=== PATIENT | male | born 1995 | race Hispanic/Latino ===

== ENCOUNTER 2022-10-25 22:41 | Emergency (ER) | payer OTHER, SELFPAY ==
[~2022-10-25 22:41] MED LIST: Iopamidol 370 76% 100 ML VIAL ONE
[2022-10-25] MEDS ORDERED: Morphine 4 MG/ML VIAL ONE (23:05)
[2022-10-25] MEDS ORDERED: Sodium Chloride 0.9% 1,000 ML ONE (23:05)
[2022-10-25 23:07] LABS: #Basophils 0.1 thou/uL (0.0-0.2); #Lymphocytes 1.6 thou/uL (1.20-3.40); #Monocytes 0.8 thou/uL (0.11-0.59); #Neutrophils 11.9 thou/uL (1.40-6.50); %Basophils 0.6 % (0.0-1.0); %Eosinophils 0.3 % (0.0-10.0); %Lymphocytes 10.8 % (21.0-51.0); %Monocytes 5.8 % (0.0-10.0); %Neutrophils 82.6 % (42.0-75.0); Hematocrit 48.9 % (42.0-52.0); Hemoglobin 16.6 g/dL (14.0-18.0); Mean Corpuscular HGB CONC 33.8 g/dL (32.0-36.0); Mean Corpuscular Volume 88.7 fl (78.0-98.0); Mean Platelet Volume 10.6 fL (7.4-10.4); Platelet Count 216 10x3/uL (130-400); RBC Distribution Width 11.6 % (11.5-14.5); Red Blood Cell (RBC) Count 5.51 mill/uL (4.70-6.10); White Blood Cell (WBC) Count 14.4 10x3/uL (4.8-10.8)
[2022-10-25] MEDS ORDERED: Ondansetron PF 4 MG/2 ML Vial ONE (23:11)
[2022-10-25 23:27] LABS: ALT (SGPT) 93 U/L (8-55); AST (SGOT) 37 U/L (5-34); Albumin 4.9 g/dL (3.5-5.0); Alkaline Phosphatase 83 U/L (40-110); Anion Gap 18 mmol/L (10-20); BUN (Urea Nitrogen) 9 mg/dL (8.9-20.6); Calc. Creatinine Clearance 0 mL/min (70-130); Calcium 10.8 mg/dL (7.8-10.44); Carbon Dioxide 25 mmol/L (22-29); Chloride 102 mmol/L (98-107); Estimated GFR 94; Globulin 3.4 g/dL (2.4-3.5); Glucose 103 mg/dL (70-105); Potassium 3.7 mmol/L (3.5-5.1); Protein, Total 8.3 g/dL (6.0-8.3); Sodium 141 mmol/L (136-145)
[2022-10-25 23:50] LABS: Bilirubin Negative (Negative); Blood, Urine Negative (Negative); CAUTI Indications for Culture Dysuria,urgency,freq; Clarity Clear (Clear); Glucose, Urine (Dipstick) Negative (Negative); Ketone, Urine Negative (Negative); Leukocyte Negative (Negative); Nitrite Negative (Negative); Protein, Urine (Dipstick) Negative (Neg-Trace); RBC/HPF 0-3 HPF (0-3); Specific Gravity, Urine 1.015 (1.005-1.030); Squamous Epithelial 0-3 HPF (0-3); Urine Culture Reflex No No; Urobilinogen 0.2 mg/dL (Less than 2); pH, Urine 8.5 (5.0-9.0)
[2022-10-26] MEDS ORDERED: Sodium Chloride 0.9% 1,000 ML ONE ×2 (02:45→04:02)
== END 2022-10-26 03:58 | disposition short-term general hospital (02) ==
LOC: MADERS 22:41 → EEVIPCON 22:41 → MADERS 10-26 03:58
DX: K56.609 Unspecified intestinal obstruction, unspecified as to partial versus complete obstruction (principal); D72.829 Elevated white blood cell count, unspecified
CPT/HCPCS: 74022; 74177; 80053; 81001; 83605; 85025; 96374; 96375; J2270; J2405; J7050; Q9967